=== PATIENT | female | born 1930 | race Caucasian/White ===

== ENCOUNTER → 2017-07-20 | Outpatient (CLI) | payer MEDICARE ==
--- NOTE | 2017-07-20 15:28 | RAD ---
Indication monoclonal mammography. Evaluate for lytic disease. A bone survey was performed. No prior bone survey is available. Single view chest: There is mild cardiomegaly. Tortuous thoracic aorta is noted. There are healed bilateral rib fractures. No definite lytic focus is seen. Spinal column. AP and lateral views of the cervical thoracic and lumbar spine were obtained. There is some prevertebral soft tissue swelling in the cervical spine. There are degenerative changes in the cervical spine. There is slight collapse of C6. An acute finding is not seen. There is substantial demineralization of the thoracic spine with marked wedging of numerous thoracic vertebral body segments. A definite focal lytic process however is not seen. In the lumbar spine there is some marked bony demineralization. There is significant collapse of L1. Kyphoplasty changes are noted at L2. A discrete lytic focus is not seen. Lateral skull. There is a demineralized focus involving the parietal bone near the vertex. Subtle lucencies are seen posteriorly in the calvarium. It is uncertain whether these findings are reflection of venous lakes or focal lytic disease. Upper extremities. AP views of both forearms and each humerus was obtained. There is generalized demineralization. A discrete lytic focus however is not seen. There is mild deformity involving the distal right radius at the diaphyseal metaphyseal junction likely reflecting old trauma Lower extremities. AP views of both femurs were obtained as well as AP views of the lower legs. There is generalized demineralization but a discrete lytic focus is not seen. Single view pelvis. 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 Numerous compression deformities are noted but an isolated lytic focus is not seen. Occasional areas of demineralization are seen in the calvarium. It is uncertain whether this is a reflection of lytic disease, venous lakes are generally bony demineralization
== END | disposition home or self-care (01) ==
LOC: RAD 13:38
PROVIDERS: ATTEND Internal Medicine Hematology & Oncology
DX: D47.2 Monoclonal gammopathy (principal)
CPT/HCPCS: 77075